=== PATIENT | male | born 2005 | race Caucasian/White ===

== ENCOUNTER 2023-01-08 14:20 | Outpatient (CLI) | payer BC ==
[2023-01-08 15:26] LABS: Hematocrit 45.2 % (38.8-50.0); Hemoglobin 16.2 g/dL (13.5-17.5); Mean Corpuscular HGB CONC 35.8 g/dL (32.0-36.0); Mean Corpuscular Hemoglobin 31.5 pg (27.0-33.0); Mean Corpuscular Volume 87.9 fl (81.2-95.1); Mean Platelet Volume 10.3 fl (7.4-10.4); Platelet Count 219 10x3/uL (150-450); RBC Distribution Width 12.3 % (11.5-14.5); Red Blood Cell (RBC) Count 5.14 10x6/uL (4.32-5.72)
[2023-01-08 15:55] LABS: Anion Gap 13 mmol/L (10-20); BUN (Urea Nitrogen) 13 mg/dL (8.4-21.0); Calc. Creatinine Clearance 0 mL/min (70-130); Calcium 9.4 mg/dL (7.8-10.44); Carbon Dioxide 28 mmol/L (22-29); Chloride 103 mmol/L (98-107); Estimated GFR 107; Glucose 81 mg/dL (70-105); Potassium 4.4 mmol/L (3.5-5.1); Sodium 140 mmol/L (136-145)
== END 2023-01-08 14:21 | disposition home or self-care (01) ==
LOC: LABBT 14:20
PROVIDERS: ATTEND Neurological Surgery
DX: Z01.818 Encounter for other preprocedural examination (principal); M54.16 Radiculopathy, lumbar region
CPT/HCPCS: 80048; 85027; 93005; 93010

== ENCOUNTER 2023-01-14 06:31 | Day surgery (SDC) | payer BC ==
[2023-01-08 14:56] VITALS: BMI 20.9
[2023-01-14] MEDS ORDERED: Rocuronium Bromide 10 MG/ML (10ML VIAL) ONE ×2 (06:55→08:17)
[2023-01-14] MEDS ORDERED: Ondansetron PF 4 MG/2 ML Vial ONE ×3 (06:55→12:06)
[2023-01-14] MEDS ORDERED: PROPOFOL 0 ML ONE (06:55)
[2023-01-14] MEDS ORDERED: Lidocaine 1% PF 5 ML VIAL ONE ×2 (06:55→08:17)
[2023-01-14] MEDS ORDERED: fentaNYL PF 100 MCG/2 ML SYRINGE ONE ×2 (07:02→09:45)
[2023-01-14] MEDS ORDERED: Dexmedetomidine 200 MCG/2 ML VIAL ONE (07:26)
[2023-01-14] MEDS ORDERED: Ketamine In 0.9 % NaCl 50 MG/5 ML SYRINGE ONE (07:27)
[2023-01-14] MEDS ORDERED: Midazolam HCl 2 mg/2 ml Vial ONE (07:27)
[2023-01-14] MEDS ORDERED: Vancomycin 1 GM VIAL ONE (07:52)
[2023-01-14] MEDS ORDERED: Sodium Chloride 0.9% 100 ML ONE (08:06)
[2023-01-14] MEDS ORDERED: CEFAZOLIN 2 GM VIAL ONE (08:06)
[2023-01-14] MEDS ORDERED: NEOSTIGMINE 3 MG/3 ML SYR 3 MG/3 ML SYRINGE ONE ×2 (08:17→08:56)
[2023-01-14] MEDS ORDERED: Succinylcholine 200 MG/10 ml SYRINGE FS ONE ×2 (08:17→08:35)
[2023-01-14] MEDS ORDERED: PROPOFOL 20 ML ONE (08:17)
[2023-01-14] MEDS ORDERED: Dexamethasone 20 MG/5 ML VIAL ONE (08:17)
[2023-01-14] MEDS ORDERED: PROPOFOL 200 MG/20 ML VIAL ONE (08:17)
[2023-01-14] MEDS ORDERED: Glycopyrrolate 0.2 MG/ML 5 ML SYRINGE ONE ×2 (08:17→08:56)
[2023-01-14] MEDS ORDERED: Dexamethasone 4 mg/ml Vial ONE (08:32)
[2023-01-14] MEDS ORDERED: SUGAMMADEX SODIUM 200 MG/2 ML VIAL ONE (09:06)
[2023-01-14] MEDS ORDERED: Meperidine HCl/PF 25 MG/ML VIAL ONE (09:48)
[2023-01-14] MEDS ORDERED: HYDROcodone/Acetaminophen 5/325 mg Tablet ONE (11:27)
[2023-01-14] MEDS ORDERED: Meclizine HCl 25 MG TAB PO SCH (13:00)
== END 2023-01-14 13:20 | disposition home or self-care (01) ==
LOC: SDC 06:31
PROVIDERS: ATTEND Neurological Surgery
PROC: 0SB20ZZ Excision of Lumbar Vertebral Disc, Open Approach (ICD-10-PCS; principal; 2023-01-14)
DX: M51.16 Intervertebral disc disorders with radiculopathy, lumbar region (principal)
CPT/HCPCS: J1100; J2175; J2250; J2405; J2704; J3370; J3490